=== PATIENT | male | born 2000 | race Hispanic/Latino ===

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

== ENCOUNTER 2021-12-06 16:06 | Emergency (ER) | payer MEDICAID ==
[~2021-12-06] VITALS: Ht 172.7 cm; Wt 54.4 kg
[2021-12-06 16:07] VITALS: BP 101/54
[2021-12-06] MEDS ORDERED: OSEL75 PO (16:22)
[2021-12-06] MEDS ORDERED: IBUPROFEN 800 MG TAB PO ONE (16:30)
[2021-12-06] MEDS ORDERED: ACETAMINOPHEN 500 MG TABLET PO ONE (16:30)
== END 2021-12-06 16:32 | disposition home or self-care (01) ==
LOC: EDH 16:06
DX: J10.1 Influenza due to other identified influenza virus with other respiratory manifestations (principal); Z88.1 Allergy status to other antibiotic agents; Z88.8 Allergy status to other drugs, medicaments and biological substances

== ENCOUNTER 2022-02-16 16:52 | Emergency (ER) | payer MEDICAID ==
[~2022-02-16] VITALS: Ht 167.6 cm; Wt 54.4 kg
[~2022-02-16 16:52] MED LIST: OSEL75 PO
[2022-02-16 17:07] VITALS: BP 128/76
[2022-02-16] MEDS ORDERED: ACETAMINOPHEN 325 MG TAB PO ONE (18:00)
== END 2022-02-16 18:08 | disposition home or self-care (01) ==
LOC: EDH 16:52
DX: U07.1 COVID-19 (principal); Z88.1 Allergy status to other antibiotic agents; Z88.8 Allergy status to other drugs, medicaments and biological substances
CPT/HCPCS: 99283; 87635; 87880; 87804 ×2; C9803

== ENCOUNTER 2024-03-25 12:59 | Emergency (ER) | payer BC, MEDICAID ==
[~2024-03-25] VITALS: Ht 172.7 cm; Wt 54.4 kg
--- NOTE | 2024-03-25 13:25 | ERN ---
ED Note History of Present Illness Stated Complaint: LEG ANKLE INJURY Chief Complaint: Ankle Problem Time Seen by MD: 13:02 Time Seen by Midlevel: 13:08 Dictation: 23-year-old male with no past medical history coming in complaining of left ankle pain started last night after he jumped and when he landed twisted his left ankle. No other complaints at this time. Allergies: Coded Allergies: amoxicillin (Unverified Allergy, Unknown, 10/31/18) clavulanic acid (Unverified Allergy, Unknown, 10/31/18) Home Meds Active Scripts Oseltamivir Phosphate (Tamiflu) 75 Mg Cap, 75 MG PO BID for 5 Days, #10 CAP Prov:SACHA VELA NP 12/06/21 Past Medical History Past Medical History: No Pertinent History Surgical History: None Review of System Dictation Constitutional: Negative for fever,chills, and weight loss Eyes: Negative for injury, pain,redness, and discharge ENT: Negative for injury,pain or swelling Cardiovascular: Negative for chest pain, palpitations, and edema Respiratory: Negative for shortness of breath, cough, and wheezing, Abdomen/GI: Negative for abdominal pain, nausea, vomiting, diarrhea, and constipation Back: Negative for injury and pain : Negative for injury, bleeding and discharge MS/Extremity: Negative for injury and deformity, left ankle pain Skin: Negative for rash, and discoloration Neuro: Negative for headache, weakness, numbness, tingling, and seizure Psych: Negative for suicide ideation, homicidal ideation, and hallucinations Review of Systems: was completed Initial Vital Sign VS Vital Signs Date Time Temp Pulse Resp B/P (MAP) Pulse Ox O2 Delivery O2 Flow Rate FiO2 03/25/24 13:19 97.9 90 18 115/70 0 Room Air Physical Exam Dictation General: awake, alert, NAD Head/Face: Normocephalic, atraumatic Eyes: PERRL, EOMI, vision at baseline ENT: oral cavity clear, TMs clear, no signs of infection Neck: Trachea midline, supple, no nuchal rigidity Cardiovascular: RRR, normal S1/S2, No MRGs, no JVD Respiratory: CTAB, no respiratory distress, No rales or wheezes Abdomen: Soft, non-tender, non-distended, normal bowel sounds, no guarding or rebound. Skin: Warm, dry, normal turgor, no rash MS/Extremity: Pulses equal, no cyanosis, neurovascular intact, FROM minimal swelling noted to the left ankle Neuro: COAx4, GCS 15, strength 5/5, CN 2-12 intact, normal cerebellar exam, normal gait, Psych: Normal behavior, mood, and affect normal Results (Laboratory/Radiology) X-RAY Comment: [place] [id number] [place] [address] IMAGING REPORT Signed PATIENT: JODY SPAULDING MR#: [id number] : 2000 SEX: M AGE: 23 LOCATION: [facility] ORDER [id number] STATUS: [facility] ER REPORT#: [id number] SERVICE 1308 REASON: twisted ankle ORDERING PHYSICIAN: OLI JEFFERSON NP PROCEDURE: [id number] - ANKLE COMP 3VWS LT LEFT ANKLE RADIOGRAPHS - 3 VIEWS INDICATION: Pain COMPARISON: None FINDINGS: AP, lateral, and oblique views. No fracture or dislocation identified. The talar dome is intact. Ankle mortise and tibial plafond are well maintained. No significant joint effusion is present. No radiopaque foreign body noted. IMPRESSION: No evidence for fracture or dislocation. DICTATED BY: KELLI LOUIS MD DATE: 03/25/241437 ELECTRONICALLY SIGNED BY: KELLI LOUIS MD DATE: 03/25/24 1444 ED Course ED Course Orders Procedure Category Date Status Time Ankle Comp 3vws Lt RAD 03/25/24 Resulted 13:08 Vital Signs Date Time Temp Pulse Resp B/P (MAP) Pulse Ox O2 Delivery O2 Flow Rate FiO2 03/25/24 13:19 97.9 90 18 115/70 0 Room Air Medical Decision Making MDM MDM: 23-year-old male with no past medical history coming in complaining of left ankle pain started last night after he jumped and when he landed twisted his left ankle. No other complaints at this time. X-ray of the ankle shows no acute findings. We will up ankle with Seymour bandage. Educated patient on findings, discussed to follow up with PCP in 1-2 days and to return to the ER symptoms worsen. Patient verbalized understanding, answered all questions. Differential diagnosis: Sprain, ankle fracture, Rationale: Tests considered and ordered secondary to shared decision making include: Previous outside records reviewed: Old ER visits. Risk of complication and/or morbidity or mortality of patient management: None Medications-Per medication reconciliation Need for hospitalization: Patient does not meet criteria for hospitalization. Need for emergency major/minor surgery: No There are no social concerns with this patient. Prescription drug management Prescriptions will include symptomatic care Patient's prior external medical records from other ER visits were reviewed by me as indicated. Prior testing and results from previous visits were reviewed. Prior tests were taken into account with medical decision making and resource utilization, independent historian/historians were used to obtain complete medical history. I independently interpreted the test that were performed, results were reviewed by me and considered findings on radiology if ordered. Medical management and examination interpretation discussions were had by me with other qualified healthcare professionals as indicated for the patient's care. DX & DISP Disposition: Discharge Departure Impression: Primary Impression: Ankle sprain Condition: Stable Additional Instructions: You can take Tylenol or Motrin [id number] for pain control. Elevate your leg you can apply ice to help with the swelling. Follow up with the PCP in 1-2 days and return to the ER if symptoms worsen. Referrals: SELF,REFERRAL (PCP) Time of Disposition: 14:57 I have reviewed the case, and I agree with, Diagnosis and Plan OLI JEFFERSON NP Mar 25, 2024 13:25
--- NOTE | 2024-03-25 14:44 | HMCIMG ---
LEFT ANKLE RADIOGRAPHS - 3 VIEWS INDICATION: Pain COMPARISON: None FINDINGS: AP, lateral, and oblique views. No fracture or dislocation identified. The talar dome is intact. Ankle mortise and tibial plafond are well maintained. No significant joint effusion is present. No radiopaque foreign body noted. IMPRESSION: No evidence for fracture or dislocation.
--- NOTE | 2024-03-25 16:41 | NUR ---
ASSUMED CARE AT THIS TIME. APPLIED MELISSA WRAP TO LT ANKLE. PT TOLERALED WELL. PT USING PERSONAL CRUTCHES AND WALKED INTO INTERNAL WAITING AREA FOR DC INSTRUCTIONS AND MED PASS.
[2024-03-25] MEDS: ibuPROFEN 600 MG TABLET PO STA (16:42)
[2024-03-25 16:44] VITALS: BP 122/87; PULSE 67; RESP 18; TEMP 97; O2SAT 98
== END 2024-03-25 16:45 | disposition home or self-care (01) ==
LOC: EDH 12:59
DX: S93.402A Sprain of unspecified ligament of left ankle, initial encounter (principal); Z88.0 Allergy status to penicillin; X50.1XXA Overexertion from prolonged static or awkward postures, initial encounter; Y93.89 Activity, other specified; Y92.89 Other specified places as the place of occurrence of the external cause; Y99.8 Other external cause status
CPT/HCPCS: 73610; 99283